=== PATIENT | female | born 1980 | race Caucasian/White ===

== ENCOUNTER → 2016-12-12 | Outpatient (CLI) | payer BC ==
--- NOTE | 2016-12-13 06:46 | CONS ---
DATE OF CONSULTATION: A 36-year-old female patient who has a very complicated neurologic history. The patient states that she was in a good state of health until around the summer of 2015 where she started having episodes of seizures. The first episode of seizure occurred while she was at work and she apparently had tonic-clonic seizures. She used to live in [facility] and currently she is unable to drive, and she has been staying in [place] with family. Her still lives [facility]. Currently she is on antihypertensive medication. She is on a combination of Vimpat and Aptiom. She is being followed up by Dr. Marilyn Fraire. 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 The patient is able to go to bed without any major difficulties. She states that she typically goes to bed at around 10:00 p.m. and she wakes up 6:00 to 8:00 a.m. in the morning now that she is off work. In the aerospace medicine physician hours, she has been told by her that she would have jerky body movements and seizure-like activity. This has not been confirmed; however, by EEG. In fact the patient denies having any loss of urine or bladder control. No biting of the tongue or lips. She occasionally clenches her jaw during sleep and there is also concern of sleep apnea knowing that she snores and she has been told to wake up at times due to apneas and choking and gasping for air. She is waking up in the morning tired and fatigue and she feels sleepy during the day. She is also having some problems with memory and concentration. For all these reasons, the patient was referred to me to be evaluated for sleep apnea and at the same time look for any nocturnal seizure activity. Note that the frequency of these nocturnal seizures have not been many and the patient reports one episode of these jerky body activities every month or two. No sleepwalking. No sleeptalking. No significant symptoms to suggest restless leg syndrome. She has been diagnosed having multiple psychiatric conditions in addition including generalized anxiety disorder, panic disorder, PTSD, and social anxiety along with major depression with somatic symptoms. She also has ADD maintained on Adderall 1 tablet 5 mg XR in the morning. No sleep paralysis. No hallucinations. No cataplexy. No excessive intake of alcoholic beverages or coffee. No head trauma. No substance abuse. PAST MEDICAL HISTORY: 1. Epilepsy/seizures. 2. Hypertension. 3. Anxiety disorder/social anxiety. 4. Depression. 5. ADD with impulsive disorder. 6. Major depression with somatic symptoms. 7. Posttraumatic stress disorder. 8. Anxiety/panic. PAST SURGICAL HISTORY: Appendectomy. ALLERGIES: Not known. Outpatient medication includes: Vimpat, lisinopril, folic acid, Aptiom, Xanax and Zoloft. SOCIAL HISTORY: Nonsmoker. No history of alcohol, no history of IV drugs. FAMILY HISTORY: Negative for sleep apnea. REVIEW OF SYSTEMS: Twelve-point review of systems was done and all of the positive findings were mentioned above in the history of present illness. Her current vital signs are as follows: Her blood pressure is 100/68, pulse 78, respirations 18. Saturation is 98% on room air. Temperature 98.0. Neck size 15-3/4 inches. BMI is 25.9. [place] score 16. GENERAL APPEARANCE: Calm, comfortable. HEENT: Negative for any significant crowding of the posterior pharynx. The patient has no micrognathia. Alignment of the upper and lower jaw is appropriate. LUNGS: Clear to auscultation. HEART: Sounds are regular rate and rhythm. Normal S1, S2. No S3. No S4. No murmurs. ABDOMEN: Soft, nontender, no organomegaly. EXTREMITIES: No edema. No cyanosis or clubbing. IMPRESSION: 1. Obstructive sleep apnea suspected clinically under investigation. 2. Seizure disorder rule out aerospace medicine physician seizure activity. 3. Generalized anxiety disorder/panic. 4. Posttraumatic stress disorder. 5. Social anxiety. 6. Major depression with somatic symptoms. 7. ADD with impulsive disorders. 8. Hypertension. PLAN: Proceed with a screening polysomnogram. I will screen this patient for obstructive sleep apnea. At the same time we will see if there is any evidence of nocturnal seizures. Note that these seizures that she has been reporting are sporadic occurring once every few months and I am not sure we are going to be able to capture any form of nocturnal seizures. However, will be able to rule out or in the possibility of obstructive sleep apnea. Will continue to follow. Will communicate with the physicians including Neurology and Psychiatry.
== END | disposition home or self-care (01) ==
LOC: SLEEP 15:26
PROVIDERS: ATTEND Internal Medicine Critical Care Medicine
DX: F43.10 Post-traumatic stress disorder, unspecified (principal); R56.9 Unspecified convulsions; F41.8 Other specified anxiety disorders; F32.9 Major depressive disorder, single episode, unspecified; I10 Essential (primary) hypertension; F98.8 Other specified behavioral and emotional disorders with onset usually occurring in childhood and adolescence; Z79.899 Other long term (current) drug therapy
CPT/HCPCS: 99211